=== PATIENT | male | born 1980 | race Caucasian/White ===

== ENCOUNTER 2023-06-13 16:19 | Emergency (ER) | payer MEDICAID ==
[2023-06-13] MEDS: Acetaminophen/HYDROcodone 325-5 MG Tab PO ONE ×2 (17:27→20:22)
[2023-06-13] MEDS: Ketorolac 30 MG/ML SDV IM ONE (17:28)
== END 2023-06-13 20:52 | disposition home or self-care (01) ==
LOC: JP.ED 16:19
DX: S92.001A Unspecified fracture of right calcaneus, initial encounter for closed fracture (principal); Z79.899 Other long term (current) drug therapy; X58.XXXA Exposure to other specified factors, initial encounter
CPT/HCPCS: 73610; 73700; 99284; A9270

== ENCOUNTER → 2024-12-01 | Day surgery (SDC) | payer MEDICAID ==
[~2024-12-01] MED LIST: Benzocaine 20% Top Spray 56 GM Bottle TOP SCH; Propofol 200 MG/20 ML SDV ONE
[2024-12-01] MEDS: Naloxone 0.4 MG/ML SDV IVPUSH PRN (14:27)
[2024-12-01 15:17] LABS: APPEARANCE,URINE SLIGHTLY CLOUDY (CLEAR); GLUCOSE,URINE NEGATIVE (NEGATIVE); OCCULT BLOOD,URINE NEGATIVE (NEGATIVE)
[2024-12-01 15:22] LABS: AMPHETAMINES SCREEN, URINE PRESUMPTIVE POSITIVE (NEGATIVE); METHADONE SCREEN, URINE NEGATIVE (NEGATIVE); METHAMPHETAMINES SCREEN, URINE PRESUMPTIVE POSITIVE (NEGATIVE); OXYCODONE SCREEN,URINE NEGATIVE (NEGATIVE); PROPOXYPHENE SCREEN,URINE NEGATIVE (NEGATIVE); THC SCREEN,URINE 50 NG/ML PRESUMPTIVE POSITIVE (NEGATIVE)
[2024-12-01 16:10] LABS: BASOPHILS ABSOLUTE AUTO 0.01 K/uL (0.00-0.10); BASOPHILS PERCENT AUTO 0.2 % (0.1-1.3); EOSINOPHILS ABSOLUTE AUTO 0.11 K/uL (0.00-0.40); EOSINOPHILS PERCENT AUTO 1.8 % (0.0-5.4); IMMATURE GRAN ABSOLUTE AUTO 0.02 K/uL (0.00-0.23); IMMATURE GRAN PERCENT AUTO 0.3 % (0.0-0.7); LYMPHOCYTES ABSOLUTE AUTO 1.23 K/uL (0.8-3.3); LYMPHOCYTES PERCENT AUTO 20.0 % (11.4-47.7); MONOCYTES ABSOLUTE AUTO 0.39 K/uL (0.20-0.90); MONOCYTES PERCENT AUTO 6.3 % (3.3-12.6); NEUTROPHILS ABSOLUTE AUTO 4.40 K/uL (1.0-7.6); NEUTROPHILS PERCENT AUTO 71.4 % (40.0-78.1); PLATELET COUNT,PLT 199 K/uL (130-375); RED BLOOD CELL COUNT 3.81 M/uL (4.14-5.76); WHITE BLOOD CELL COUNT,WBC 6.2 K/uL (3.2-11.0)
[2024-12-01 16:16] LABS: CALCIUM IONIZED,ISTAT 1.11 mmol/L (1.12-1.32); HEMATOCRIT,ISTAT 33 % (36-48); PH ARTERIAL,ISTAT 7.35 (7.35-7.45); POTASSIUM,ISTAT 3.7 mmol/L (3.5-4.9); SODIUM,ISTAT 138 mmol/L (140-148)
[2024-12-01 16:17] LABS: BASE EXCESS ARTERIAL,ISTAT -2 mmol/L (-2-3); HCO3 ARTERIAL,ISTAT 23.5 mmol/L (22.0-26.0); O2 SATURATION ARTERIAL,ISTAT 99 % (95-98); PCO2 ARTERIAL,ISTAT 42.4 mmHG (35-45); PO2 ARTERIAL,ISTAT 140 mmHg (80-105); TCO2 ARTERIAL,ISTAT 25 mmol/L (23-27)
[2024-12-01 16:25] LABS: A/G RATIO 1.1 (1.2-2.2); ALANINE AMINOTRANSFERASE,ALT 26 U/L (12-78); ASPARTATE AMNIOTRANSFERASE,AST 19 U/L (15-37); BILIRUBIN TOTAL 0.2 mg/dL (0.2-1.0); BLOOD UREA NITROGEN,BUN 17 mg/dL (7-18); CARBON DIOXIDE,CO2 29 mmol/L (21-32); CHLORIDE,CL 105 mmol/L (100-108); CREATININE 0.6 mg/dL (0.8-1.3); EST CRCL DRUG DOSING (CG) 152.98 mL/min; ESTIMATED GFR 121 mL/min (>60); GLUCOSE RANDOM 90 mg/dL (74-106); POTASSIUM,K 3.8 mmol/L (3.6-5.2); PROTEIN TOTAL,TP 6.0 g/dL (6.4-8.2); SODIUM,NA 140 mmol/L (140-148)
[2024-12-01] MEDS: Phenol/Sodium Phenolate Spray 180 ML Bottle MUCMEM PRN (17:14)
== END ==
LOC: JP.ED 13:09 → JP.SDS 14:32
PROVIDERS: ATTEND Surgery
DX: T18.2XXA Foreign body in stomach, initial encounter (principal); F32.9 Major depressive disorder, single episode, unspecified; Z79.899 Other long term (current) drug therapy
CPT/HCPCS: 36415; 36600; 43247; 74176; 80053; 80305; 80307; 81003; 82803; 83605; 83735; 85025; 96374; 99284; A9270; J2312; J2704; 99283